=== PATIENT | male | born 1995 | race Caucasian/White ===

== ENCOUNTER 2017-09-07 18:46 | Emergency (ER) | payer SELFPAY ==
[~2017-09-07] VITALS: Ht 182.9 cm; Wt 95.0 kg
[2017-09-07 19:03] VITALS: BP 142/71; PULSE 119; RESP 20; TEMP 102.5; O2SAT 98
[2017-09-07] MEDS ORDERED: SODIUM CHLOR 0.9% 1000 ML INJ 700 ML IV ONE (19:59)
[2017-09-07] MEDS ORDERED: SODIUM CHLOR 0.9% 1000 ML INJ 1,000 ML IV ONE ×2 (19:59)
[2017-09-07] MEDS ORDERED: MORPHINE SULFATE 8 MG/ML INJ IV PUSH ONE (20:00)
[2017-09-07] MEDS ORDERED: PROCHLORPERAZINE INJ 10 MG/2 ML VIAL IV PUSH ONE (20:00)
[2017-09-07] MEDS ORDERED: diphenhydrAMINE HCL 50 MG/ML VIAL IV PUSH ONE (20:00)
[2017-09-07] MEDS ORDERED: IBUPROFEN 600 MG TAB PO ONE (20:00)
[2017-09-07] MEDS ORDERED: ONDANSETRON HCL 4 MG/2 ML VIAL IV PUSH ONE (20:00)
--- NOTE | 2017-09-07 20:28 | PD ---
HPI Chief Complaint: ENT Complaint Time Seen by Provider: 19:55 Travel History International Travel<30 days: No Contact w/Intl Traveler<30days: No Traveled to known affect area: No History of Present Illness HPI 22-year-old male arrives with a sore throat. Duration is been about 2 days. Associated symptoms include chills myalgias headache and decreased energy. Swallowing is painful especially on the left side. His friends noticed some tremor. Onset gradual with a constant timing. PFSH Social History Tobacco Use: No Allergies-Medications (Allergen,Severity, Reaction): Coded Allergies: Sulfa (Sulfonamide Antibiotics) (Verified Allergy, Unknown, 09/07/17) Reported Meds & Prescriptions Reported Meds & Active Scripts Active Amoxicillin 875 Mg Tab 875 Mg PO BID 7 Days Tamiflu (Oseltamivir Phosphate) 75 Mg Cap 75 Mg PO BID 5 Days Review of Systems Except as stated in HPI: all other systems reviewed are Neg General / Constitutional: Positive: Fever, Chills HENT: Positive: Sore Throat Cardiovascular: No: Chest Pain or Discomfort Respiratory: No: Shortness of Breath Physical Exam Narrative GENERAL: 22-year-old male pleasant well-nourished well-developed Vital Signs Date Time Temp Pulse Resp B/P (MAP) Pulse Ox O2 Delivery O2 Flow Rate FiO2 09/07/17 19:03 102.5 119 20 142/71 (94) 98 SKIN: Warm and dry. HEAD: Atraumatic. Normocephalic. EYES: Pupils equal and round. No scleral icterus. No injection or drainage. ENT: No nasal bleeding or discharge. Mucous membranes pink and moist. Posterior oropharynx is widely patent. It is diffusely erythematous however there is no evidence of tonsillar hypertrophy or asymmetry of soft palate or exudate. NECK: Trachea midline. No JVD. CARDIOVASCULAR: Tachycardia. Regular rhythm. RESPIRATORY: No accessory muscle use. Clear to auscultation. Breath sounds equal bilaterally. GASTROINTESTINAL: Abdomen soft, non-tender, nondistended. Hepatic and splenic margins not palpable. MUSCULOSKELETAL: Extremities without clubbing, cyanosis, or edema. No obvious deformities. NEUROLOGICAL: Awake and alert. No obvious cranial nerve deficits. Motor grossly within normal limits. Five out of 5 muscle strength in the arms and legs. Normal speech. PSYCHIATRIC: Appropriate mood and affect; insight and judgment normal. Data Data Last Documented VS Vital Signs Date Time Temp Pulse Resp B/P (MAP) Pulse Ox O2 Delivery O2 Flow Rate FiO2 09/07/17 20:55 85 16 98 Room Air 09/07/17 19:03 102.5 142/71 (94) Orders Orders Sepsis Workup Initiated (09/07/17 ) Complete Blood Count With Diff (09/07/17 19:59) Influenzae A/B Antigen (09/07/17 19:59) Ecg Monitoring (09/07/17 19:59) Iv Access Insert/Monitor (09/07/17 19:59) Oximetry (09/07/17 19:59) Ibuprofen (Motrin) (09/07/17 20:00) Morphine Inj (Morphine Inj) (09/07/17 20:00) Ondansetron Inj (Zofran Inj) (09/07/17 20:00) Sodium Chlor 0.9% 1000 Ml Inj (Ns 1000 M (09/07/17 19:59) Sodium Chlor 0.9% 1000 Ml Inj (Ns 1000 M (09/07/17 19:59) Sodium Chlor 0.9% 1000 Ml Inj (Ns 1000 M (09/07/17 19:59) Prochlorperazine Inj (Compazine Inj) (09/07/17 20:00) Diphenhydramine Inj (Benadryl Inj) (09/07/17 20:00) Basic Metabolic Panel (Bmp) (09/07/17 19:59) Oseltamivir (Tamiflu) (09/07/17 21:30) Penicillin G Benzathine Inj (Bicillin L- (09/07/17 21:30) Amoxicillin (Trimox) (09/07/17 21:30) Ed Discharge Order (09/07/17 21:24) Labs Laboratory Tests Test 09/07/17 20:05 White Blood Count 16.8 TH/MM3 Red Blood Count 5.05 MIL/MM3 Hemoglobin 15.2 GM/DL Hematocrit 44.4 % Mean Corpuscular Volume 88.0 FL Mean Corpuscular Hemoglobin 30.2 PG Mean Corpuscular Hemoglobin Concent 34.3 % Red Cell Distribution Width 14.3 % Platelet Count 259 TH/MM3 Mean Platelet Volume 7.5 FL Neutrophils (%) (Auto) 87.2 % Lymphocytes (%) (Auto) 6.2 % Monocytes (%) (Auto) 6.0 % Eosinophils (%) (Auto) 0.3 % Basophils (%) (Auto) 0.3 % Neutrophils # (Auto) 14.7 TH/MM3 Lymphocytes # (Auto) 1.0 TH/MM3 Monocytes # (Auto) 1.0 TH/MM3 Eosinophils # (Auto) 0.0 TH/MM3 Basophils # (Auto) 0.1 TH/MM3 CBC Comment DIFF FINAL Differential Comment Blood Urea Nitrogen 15 MG/DL Creatinine 1.28 MG/DL Random Glucose 121 MG/DL Calcium Level 9.1 MG/DL Sodium Level 139 MEQ/L Potassium Level 3.6 MEQ/L Chloride Level 104 MEQ/L Carbon Dioxide Level 27.0 MEQ/L Anion Gap 8 MEQ/L Estimat Glomerular Filtration Rate 70 ML/MIN MDM Medical Decision Making Medical Screen Exam Complete: Yes Emergency Medical Condition: Yes Medical Record Reviewed: Yes Differential Diagnosis Influenza, pneumonia, pharyngitis, strep pharyngitis Narrative Course CBC & BMP Diagram 09/07/17 20:05 Calcium Level 9.1 Influenza is negative however the patient has clinical influenza will be treated for it. Return precautions discussed. Patient agreeable with plan. Diagnosis Primary Impression: Influenza Referrals: Primary Care Physician call for appointment Med/Other Pt SpecificInfo: Prescription(s) given Scripts Amoxicillin (Amoxicillin) 875 Mg Tab 875 MG PO BID for Infection for 7 Days, #14 TAB 0 Refills Prov: Yaakov Verde MD 09/07/17 Oseltamivir (Tamiflu) 75 Mg Cap 75 MG PO BID for Mgmt Viral Infection for 5 Days, #10 CAP 0 Refills Prov: Yaakov Verde MD 09/07/17 Disposition: 01 DISCHARGE HOME Condition: Stable Yaakov Verde MD Sep 07, 2017 20:28
[2017-09-07 20:54] LABS: AUTOMATED NEUTROPHIL # 14.7 TH/MM3 (1.8-7.7); BASOPHIL # 0.1 TH/MM3 (0-0.2); BASOPHIL % 0.3 % (0.0-2.0); EOSINOPHIL % 0.3 % (0.0-4.0); HEMATOCRIT 44.4 % (39.0-51.0); HEMOGLOBIN 15.2 GM/DL (13.0-17.0); LYMPH % 6.2 % (9.0-44.0); MEAN CORPUSCULAR HEMOGLOBIN 30.2 PG (27.0-34.0); MEAN CORPUSCULAR HGB CONC 34.3 % (32.0-36.0); MEAN PLATELET VOLUME 7.5 FL (7.0-11.0); NEUT % 87.2 % (16.0-70.0); PLATELET COUNT 259 TH/MM3 (150-450); RED BLOOD COUNT 5.05 MIL/MM3 (4.50-5.90); RED CELL DISTRIBUTION WIDTH 14.3 % (11.6-17.2); WHITE BLOOD COUNT 16.8 TH/MM3 (4.0-11.0)
[2017-09-07 20:55] VITALS: PULSE 85; RESP 16; O2SAT 98
[2017-09-07 21:05] LABS: CALCIUM 9.1 MG/DL (8.5-10.1); CREATININE 1.28 MG/DL (0.60-1.30)
[2017-09-07] MEDS ORDERED: OSEL75 PO (21:18)
[2017-09-07] MEDS ORDERED: AMOX875T PO (21:26)
[2017-09-07] MEDS ORDERED: AMOXICILLIN 875 MG TAB PO ONE (21:30)
[2017-09-07] MEDS ORDERED: OSELTAMIVIR PHOSPHATE 75 MG CAP PO ONE (21:30)
[2017-09-07] MEDS ORDERED: PENICILLIN G BENZATHINE 1,200,000 UNITS/2 ML SYRINGE IM ONE (21:30)
== END 2017-09-07 21:53 | disposition home or self-care (01) ==
LOC: NEPD 18:46
DX: J11.1 Influenza due to unidentified influenza virus with other respiratory manifestations (principal)
CPT/HCPCS: 80048; 85025; 87804; 96374; 96375; 99284; J0780; J1200; J2270; J2405; J7030